=== PATIENT | male | born 1950 | race African-American/Black ===

== ENCOUNTER 2018-04-16 18:17 | Inpatient (IN) | payer MEDICARE, OTHER ==
[~2018-04-16] VITALS: Ht 182.9 cm; Wt 79.8 kg
[~2018-04-16 18:17] MED LIST: ONDANSETRON; SIMETHICONE
[2018-04-16 20:13] LABS: BASOPHILS % 0.1 % (0.0-2.0); HEMATOCRIT. 40.5 % (42.0-52.0); HEMOGLOBIN. 13.8 g/dL (14.0-18.0); LYMPHOCYTES % 8.8 % (20.0-50.0); MEAN CORPUSCULAR HEMOGLOBIN 29.4 pg (28.0-32.0); MEAN CORPUSCULAR VOLUME 86.2 fL (80.0-94.0); MEAN PLATELET VOLUME 9.3 fl (7.4-10.4); MONOCYTES % 6.8 % (2.0-8.0); NEUTROPHILS % 84.3 % (40.0-76.0); PLATELET 232 x1000/uL (130-400); RED CELL DISTRIBUTION WIDTH 13.9 % (11.6-14.6)
[2018-04-16] MEDS ORDERED: ALBUTEROL (0.083%) 2.5MG/3ML NEB HHN ONE (20:15)
[2018-04-16] MEDS ORDERED: METHYLPREDNISOLONE SOD SUCC 125 MG/2 ML VIAL IV ONE (20:15)
[2018-04-16 20:19] LABS: CHLORIDE 100 mEq/L (98-107)
[2018-04-16] MEDS ORDERED: SODIUM CHLORIDE 0.9% 1,000 ML IV SCH (22:10)
[2018-04-17] MEDS ORDERED: ACETAMINOPHEN 325MG TABLET PO PRN (00:30)
[2018-04-17] MEDS ORDERED: GUAIFENESIN 200MG/10ML SUGAR FREE UDC PO PRN (00:30)
[2018-04-17] MEDS ORDERED: DOCUSATE SODIUM 100MG CAPSULE PO PRN (00:30)
[2018-04-17] MEDS ORDERED: CLONIDINE 0.1MG TABLET PO PRN (00:30)
[2018-04-17] MEDS ORDERED: NA PHOS,M-B/NA PHOS,DI-BA ENEMA 118ML PR PRN (00:30)
[2018-04-17] MEDS ORDERED: MORPHINE SULFATE 4 MG/ML CPJ (NOT FOR IM USE) IV PRN (00:30)
[2018-04-17] MEDS ORDERED: ONDANSETRON HCL 4MG/2ML INJ IV PRN (00:30)
[2018-04-17] MEDS ORDERED: MAGNESIUM/ALUMINUM HYDROXIDE/SIMETHICONE 30ML UDC PO PRN (00:30)
[2018-04-17] MEDS ORDERED: LORAZEPAM 2MG/ML CPJ IV PRN ×2 (00:30→15:00)
[2018-04-17] MEDS ORDERED: DIPHENHYDRAMINE 50MG/ML VIAL IV PRN (00:30)
[2018-04-17] MEDS ORDERED: IPRATROPIUM/ALBUTEROL 0.5-3(2.5)MG/3ML NEB INH PRN (00:30)
[2018-04-17 05:44] LABS: CHLORIDE 104 mEq/L (98-107)
[2018-04-17] MEDS ORDERED: METHYLPREDNISOLONE SOD SUCC 125 MG/2 ML VIAL IV SCH (12:30)
[2018-04-17] MEDS: HYDROCODONE/ACETAMINOPHEN 10/325MG TABLET PO PRN (13:22)
[2018-04-17] MEDS ORDERED: DOLU10TA PO (14:44)
[2018-04-17 14:54] LABS: CREATINE KINASE 66 IU/L (39-308)
[2018-04-17 14:55] LABS: CREATINE KINASE MB FRACTION 1.2 ng/mL (0.5-3.6)
[2018-04-17] MEDS ORDERED: TRAM150C25 PO (15:11)
[2018-04-17 15:13] VITALS: BP 164/107
[2018-04-17] MEDS ORDERED: AZITHROMYCIN 500 MG TABLET PO NR (15:30)
[2018-04-17] MEDS: ASPIRIN 81MG EC TABLET PO SCH (16:13)
[2018-04-17] MEDS: SULFAMETHOXAZOLE/TRIMETHOPRIM 800/160MG TABLET PO SCH (16:13)
[2018-04-17] MEDS: FOLIC ACID 1MG TABLET PO SCH (16:13)
[2018-04-17] MEDS: MULTIVITAMINS,THER W-MINERALS TABLET PO SCH (16:13)
[2018-04-17] MEDS: THIAMINE HCL 100MG TABLET PO SCH (16:13)
[2018-04-17] MEDS: ENOXAPARIN 40MG/0.4ML SYR SUBCUT SCH (16:14)
[2018-04-17 16:22] VITALS: BP 156/100
[2018-04-17] MEDS ORDERED: IOHEXOL-350 100 ML BOTTLE ONE (17:52)
[2018-04-17 20:00] VITALS: BP 131/87
[2018-04-17] MEDS: GUAIFENESIN 600MG ER TABLET PO SCH (20:26)
[2018-04-17] MEDS: METHYLPREDNISOLONE SOD SUCC 40 MG/ML VIAL IV SCH (20:26)
[2018-04-17] MEDS: IPRATROPIUM/ALBUTEROL 0.5-3(2.5)MG/3ML NEB HHN SCH (20:59)
[2018-04-17 22:52] LABS: CLARITY URINE CLEAR (CLEAR); COLOR URINE YELLOW (YELLOW); KETONES URINE NEGATIVE (NEGATIVE); LEUKOCYTE ESTERASE URINE NEGATIVE (NEGATIVE); NITRITE URINE NEGATIVE (NEGATIVE); OCCULT BLOOD URINE 1+ (NEGATIVE); PROTEIN URINE 1+ (NEGATIVE)
[2018-04-17 23:04] LABS: *AMPHETAMINES SCREEN URINE NEGATIVE (NEGATIVE); *BARBITURATES SCREEN URINE NEGATIVE (NEGATIVE); *BENZODIAZEPINES SCREEN URINE NEGATIVE (NEGATIVE); *COCAINE SCREEN URINE PRESUMTIVE POSITIVE (NEGATIVE)
[2018-04-17 23:05] LABS: CANNABINOID URINE SCREEN NEGATIVE (NEGATIVE); METHADONE URINE SCREEN NEGATIVE (NEGATIVE); OPIATES URINE SCREEN PRESUMTIVE POSITIVE (NEGATIVE); PHENCYCLIDINE URINE SCREEN NEGATIVE (NEGATIVE)
[2018-04-18] VITALS: BP 110/77
[2018-04-18 00:48] LABS: CREATINE KINASE MB FRACTION 2.1 ng/mL (0.5-3.6)
[2018-04-18] MEDS: IPRATROPIUM/ALBUTEROL 0.5-3(2.5)MG/3ML NEB HHN SCH ×6 (01:06→21:09)
[2018-04-18] MEDS: METHYLPREDNISOLONE SOD SUCC 40 MG/ML VIAL IV SCH ×3 (03:45→20:28)
[2018-04-18 04:00] VITALS: BP 103/65
[2018-04-18] MEDS: HYDROCODONE/ACETAMINOPHEN 10/325MG TABLET PO PRN ×3 (04:24→17:16)
[2018-04-18 07:27] LABS: HEMATOCRIT. 35.8 % (42.0-52.0); HEMOGLOBIN. 12.3 g/dL (14.0-18.0); MEAN CORPUSCULAR HEMOGLOBIN 29.4 pg (28.0-32.0); MEAN CORPUSCULAR VOLUME 85.5 fL (80.0-94.0); MEAN PLATELET VOLUME 9.7 fl (7.4-10.4); PLATELET 242 x1000/uL (130-400); RED BLOOD CELL COUNT 4.19 mill/uL (4.7-6.1)
[2018-04-18 07:50] LABS: CHLORIDE 102 mEq/L (98-107)
[2018-04-18 07:58] LABS: CREATINE KINASE MB FRACTION 1.2 ng/mL (0.5-3.6)
[2018-04-18 08:01] LABS: LDL CHOLESTEROL 60 mg/dL (5-100)
[2018-04-18 08:02] LABS: CREATINE KINASE 43 IU/L (39-308); T4 FREE 1.14 ng/dL (0.76-1.46)
[2018-04-18 08:03] LABS: HDL CHOLESTEROL 18 mg/dL (40-59)
[2018-04-18 08:06] VITALS: BP 106/71
[2018-04-18] MEDS: FOLIC ACID 1MG TABLET PO SCH (09:47)
[2018-04-18] MEDS: MULTIVITAMINS,THER W-MINERALS TABLET PO SCH (09:47)
[2018-04-18] MEDS: THIAMINE HCL 100MG TABLET PO SCH (09:47)
[2018-04-18] MEDS: AZITHROMYCIN 250 MG TABLET PO SCH (09:48)
[2018-04-18] MEDS: SULFAMETHOXAZOLE/TRIMETHOPRIM 800/160MG TABLET PO SCH (09:48)
[2018-04-18] MEDS: ASPIRIN 81MG EC TABLET PO SCH (09:48)
[2018-04-18] MEDS: GUAIFENESIN 600MG ER TABLET PO SCH ×2 (09:48→20:28)
[2018-04-18] MEDS: ENOXAPARIN 40MG/0.4ML SYR SUBCUT SCH (09:49)
[2018-04-18 12:00] VITALS: BP 109/70
[2018-04-18 14:42] LABS: PLATELET ESTIMATE NORMAL
[2018-04-18 16:00] VITALS: BP 115/79
[2018-04-18 20:00] VITALS: BP 111/72
[2018-04-19] VITALS: BP 106/61
[2018-04-19] MEDS: IPRATROPIUM/ALBUTEROL 0.5-3(2.5)MG/3ML NEB HHN SCH ×7 (00:07→23:51)
[2018-04-19 04:00] VITALS: BP 118/81
[2018-04-19] MEDS: METHYLPREDNISOLONE SOD SUCC 40 MG/ML VIAL IV SCH ×2 (04:06→11:54)
[2018-04-19 07:53] LABS: HEMOGLOBIN. 12.1 g/dL (14.0-18.0); MEAN CORPUSCULAR HEMOGLOBIN 29.2 pg (28.0-32.0); MEAN CORPUSCULAR VOLUME 84.8 fL (80.0-94.0); MEAN PLATELET VOLUME 9.6 fl (7.4-10.4); PLATELET 233 x1000/uL (130-400); RED BLOOD CELL COUNT 4.13 mill/uL (4.7-6.1); RED CELL DISTRIBUTION WIDTH 14.4 % (11.6-14.6)
[2018-04-19 08:07] VITALS: BP 117/84
[2018-04-19 08:10] LABS: CHLORIDE 102 mEq/L (98-107)
[2018-04-19] MEDS: ENOXAPARIN 40MG/0.4ML SYR SUBCUT SCH (08:11)
[2018-04-19] MEDS: GUAIFENESIN 600MG ER TABLET PO SCH ×2 (08:12→20:46)
[2018-04-19] MEDS: AZITHROMYCIN 250 MG TABLET PO SCH (08:12)
[2018-04-19] MEDS: SULFAMETHOXAZOLE/TRIMETHOPRIM 800/160MG TABLET PO SCH (08:12)
[2018-04-19] MEDS: ASPIRIN 81MG EC TABLET PO SCH (08:12)
[2018-04-19] MEDS: MULTIVITAMINS,THER W-MINERALS TABLET PO SCH (08:12)
[2018-04-19] MEDS: THIAMINE HCL 100MG TABLET PO SCH (08:13)
[2018-04-19] MEDS: FOLIC ACID 1MG TABLET PO SCH (08:13)
[2018-04-19] MEDS: HYDROCODONE/ACETAMINOPHEN 10/325MG TABLET PO PRN (08:13)
[2018-04-19 11:42] LABS: PLATELET ESTIMATE NORMAL
[2018-04-19 12:18] VITALS: BP 124/90
[2018-04-19 16:00] VITALS: BP 136/93
[2018-04-19] MEDS: PREDNISONE 20MG TABLET PO SCH (17:35)
[2018-04-19 20:00] VITALS: BP 131/87
[2018-04-20] VITALS: BP 124/88
[2018-04-20] MEDS: IPRATROPIUM/ALBUTEROL 0.5-3(2.5)MG/3ML NEB HHN SCH ×3 (02:56→12:15)
[2018-04-20] MEDS: HYDROCODONE/ACETAMINOPHEN 10/325MG TABLET PO PRN ×2 (03:13→09:15)
[2018-04-20 04:00] VITALS: BP 152/89
[2018-04-20 08:00] VITALS: BP 157/107
[2018-04-20] MEDS: ENOXAPARIN 40MG/0.4ML SYR SUBCUT SCH (09:14)
[2018-04-20] MEDS: THIAMINE HCL 100MG TABLET PO SCH (09:14)
[2018-04-20] MEDS: ASPIRIN 81MG EC TABLET PO SCH (09:14)
[2018-04-20] MEDS: GUAIFENESIN 600MG ER TABLET PO SCH (09:14)
[2018-04-20] MEDS: MULTIVITAMINS,THER W-MINERALS TABLET PO SCH (09:14)
[2018-04-20] MEDS: FOLIC ACID 1MG TABLET PO SCH (09:14)
[2018-04-20] MEDS: AZITHROMYCIN 250 MG TABLET PO SCH (09:14)
[2018-04-20] MEDS: PREDNISONE 20MG TABLET PO SCH (09:14)
[2018-04-20] MEDS: SULFAMETHOXAZOLE/TRIMETHOPRIM 800/160MG TABLET PO SCH (09:15)
[2018-04-20] MEDS ORDERED: LOSARTAN POTASSIUM 50 MG TABLET PO SCH (09:45)
[2018-04-20 10:09] LABS: % CD 3 POS. LYMPHOCYTES 56.6 % (57.5-86.2); % CD 4 POS. LYMPHOCYTES 24.9 % (30.8-58.5); % CD 8 POS. LYMPH 31.9 % (12.0-35.5); ABSOLUTE CD 3 396 /uL (622-2402); ABSOLUTE CD 4 HELPER 174 /uL (359-1519); ABSOLUTE CD 8 SUPPRESSOR 223 /uL (109-897); ABSOLUTE LYMPHOCYTES 0.7 x10E3/uL (0.7-3.1); ABSOLUTE MONOCYTES 0.3 x10E3/uL (0.1-0.9); ABSOLUTE NEUTROPHILS 12.7 x10E3/uL (1.4-7.0); BASOPHILS 0 % (Not Estab.); CD4/CD8 RATIO 0.78 (0.92-3.72); HEMATOCRIT 36.5 % (37.5-51.0); HEMATOLOGY COMMENT Note: (.); HEMOGLOBIN 12.2 g/dL (13.0-17.7); LYMPHOCYTES 5 % (Not Estab.); MEAN CORPUSCULAR HGB CONC. 33.4 g/dL (31.5-35.7); MEAN CORPUSCULAR VOLUME 87 fL (79-97); MONOCYTES 2 % (Not Estab.); NEUTROPHILS 88 % (Not Estab.); PLATELETS 285 x10E3/uL (150-379); RED CELL DISTRIBUTION WIDTH 13.9 % (12.3-15.4); WBC 13.7 x10E3/uL (3.4-10.8)
[2018-04-20 12:11] VITALS: BP 130/84
[2018-04-20 13:45] VITALS: BP 130/67
[2018-04-21] MEDS ORDERED: PREDNISONE 20MG TABLET PO SCH (09:00)
== END 2018-04-20 16:09 | disposition home or self-care (01) | DRG 917 ==
LOC: ER 18:17 → 8WST 22:10 → EDBEDREQTM 22:13 → EDBEDREQ 22:13 → ENRESERV 04-17 13:39
PROVIDERS: ADMIT Internal Medicine; ATTEND Internal Medicine
DX: T40.5X1A Poisoning by cocaine, accidental (unintentional), initial encounter (principal); J96.00 Acute respiratory failure, unspecified whether with hypoxia or hypercapnia; J44.1 Chronic obstructive pulmonary disease with (acute) exacerbation; E44.0 Moderate protein-calorie malnutrition; I50.20 Unspecified systolic (congestive) heart failure; I42.9 Cardiomyopathy, unspecified; J68.0 Bronchitis and pneumonitis due to chemicals, gases, fumes and vapors; D86.9 Sarcoidosis, unspecified; I11.0 Hypertensive heart disease with heart failure; F14.10 Cocaine abuse, uncomplicated; E78.5 Hyperlipidemia, unspecified; F10.10 Alcohol abuse, uncomplicated; Z87.891 Personal history of nicotine dependence; Z68.23 Body mass index [BMI] 23.0-23.9, adult; Y92.89 Other specified places as the place of occurrence of the external cause
CPT/HCPCS: 36415; 71045; 71275; 80048; 80061; 80305; 82550; 82553; 83036; 83880; 84439; 84443; 84484; 85379; 86359; 86360; 87804; 93005; 93306; 93970; 94640; 96361; 96374; 99285; C1893; J1650; J2920; J2930; J7030; J7512; J7611; J7620; Q9967